=== PATIENT | male | born 1950 | race Two or more races ===

== ENCOUNTER 2025-08-21 13:19 | Emergency (ER) | payer OTHER ==
[~2025-08-21] VITALS: Ht 170.2 cm; Wt 78.5 kg
[2025-08-21] MEDS ORDERED: GUAIFENESIN/DEXTROMETHORPHAN 100MG/10ML BLIST.PACK PO ONE (15:00)
[2025-08-21] MEDS ORDERED: METHYLPREDNISOLONE SOD SUCC 125 MG VIAL IV ONE (15:00)
[2025-08-21] MEDS ORDERED: LEVALBUTEROL HCL 1.25 MG/3 ML SOLUTION IH SCH (15:00)
[2025-08-21] MEDS ORDERED: IPRATROPIUM BROMIDE 0.5 MG/2.5 ML AMPUL.NEB IH SCH (15:00)
[2025-08-21] MEDS ORDERED: GUAIFEN/DEXTROMETHORPHAN/PE 10 ML BLIST.PACK PO ONE (15:04)
[2025-08-21] MEDS ORDERED: METHYLPREDNISOLONE SOD SUCC 125 MG VIAL ONE (15:05)
[2025-08-21] MEDS ORDERED: IPRATROPIUM BROMIDE 0.5 MG/2.5 ML AMPUL.NEB IH ONE (15:29)
[2025-08-21] MEDS ORDERED: LEVALBUTEROL HCL 0.63 MG/3 ML SOLUTION IH ONE (15:30)
[2025-08-21 16:48] LABS: BASO % 0.2 % (0.1-1.2); EOS # 0.00 (0.04-0.54); EOS % 0.0 % (0.7-7.0); LYMPH # 0.46 (1.18-3.74); LYMPH % 9.9 % (19.3-53.1); MEAN PLATELET VOLUME 9.10 fl (9.4-12.4); MONO # 0.40 (0.24-0.82); MONO % 8.6 % (4.7-12.5); NEUT # 3.76 (1.56-6.13); NEUT % 80.9 % (34.0-71.1); RED CELL DISTRIBUTION WIDTH 13.9 % (11.6-14.4)
[2025-08-21 17:24] LABS: ALT/SGPT 26.0 U/L (12-78); AST/SGOT 24.0 U/L (15-37); BILIRUBIN TOTAL 1.57 mg/dL (0.3-1.2); BUN CREA RATIO 10.0 (7.0-25.0); CREATININE SERUM 1.16 mg/dL (0.70-1.30); GFR 61.89; GLOBULINA 3.7 G/DL (2.4-3.5); GLUCOSE FASTING 100.0 mg/dL (65-100); OSMOLALITY SERUM 272.0 MOSM/KG (275-295)
[2025-08-21 18:51] LABS: URINE APPEARANCE Clear; URINE BILIRRUBIN Negative (NEGATIVE); URINE BLOOD Negative; URINE COLOR Yellow; URINE GLUCOSE Negative (NEGATIVE); URINE LEUKOCYTE Negative; URINE NITRATE Negative; URINE PROTEIN 30 (NEGATIVE); URINE UROBILINOGEN 1.0 E.U./dl
[2025-08-21 18:54] LABS: URINE BACTERIA 195.5 uL (0.0-1933); URINE EPITHELIAL CELLS 3.8 uL (0.0-38.8); URINE RBC 6.0 uL (0.0-20.8); URINE WBC 11.7 uL (0.0-23.2)
[2025-08-21 19:07] LABS: URINE CAST 0.00 uL (0.0-1.40); URINE KETONE 40 (NEGATIVE)
[2025-08-21 19:12] LABS: COVID-19 AG NEGATIVE (NEGATIVE)
[2025-08-21] MEDS ORDERED: OSELTAMIVIR PHOSPHATE 75 MG CAPSULE PO ONE (19:45)
[2025-08-21] MEDS ORDERED: SINGULAIR10 MG PO (19:59)
[2025-08-21] MEDS ORDERED: TUSSIN DM LIQU118 ML PO (19:59)
[2025-08-21] MEDS ORDERED: MEDROLPACK PO (19:59)
[2025-08-21] MEDS ORDERED: OSEL75CA PO (19:59)
[2025-08-21] MEDS ORDERED: XOPENEX CO1.25 MG/0. IH (19:59)
[2025-08-21] MEDS ORDERED: IPRATROPIU0.2 MG/1 M IH (19:59)
[2025-08-21] MEDS ORDERED: ZITHROMAX500 MG PO (20:06)
== END 2025-08-21 22:18 ==
LOC: ER 13:20
PROVIDERS: General Practice
DX: J10.1 Influenza due to other identified influenza virus with other respiratory manifestations (principal); R51.9 Headache, unspecified; R07.89 Other chest pain; R42 Dizziness and giddiness; Z20.822 Contact with and (suspected) exposure to COVID-19
CPT/HCPCS: 36415; 70450; 71046; 93005; 94640; 96365; 99284; J3490